=== PATIENT | male | born 1950 | race Caucasian/White ===

== ENCOUNTER 2022-12-06 09:29 | Outpatient (CLI) | payer OTHER, SELFPAY ==
[2022-12-06 13:53] LABS: Albumin* 4.4 g/dL (3.3-5.0); Chloride* 107 mmol/L (96-114); Sodium* 139 mmol/L (135-149)
[2022-12-06 13:54] LABS: Potassium* 4.2 mmol/L (3.6-5.1)
[2022-12-06 13:55] LABS: Cholesterol* 189 mg/dL (90-199)
[2022-12-06 13:56] LABS: Aspartate Amino Transferase* 30 U/L (12-35); Bilirubin Total* 0.9 mg/dL (0.1-1.5); Blood Urea Nitrogen* 16 mg/dL (7-30); Carbon Dioxide* 26 mmol/L (20-32); Creatinine* 0.8 mg/dL (0.5-1.5); Estimated Glomerular Filt Rate 95 ml/min; Glucose* 100 mg/dL (60-115); Total Protein* 7.5 g/dL (6.0-8.3); Triglycerides* 105 mg/dL (40-149)
[2022-12-06 13:57] LABS: Alanine Aminotransferase* 34 U/L (4-50); Alkaline Phosphatase* 72 U/L (40-150); HDL Cholesterol* 37 mg/dL (>=40); LDL Cholesterol Calculated 131 mg/dL (<100)
[2022-12-06 14:09] LABS: Vitamin D 25 Hydroxy* 25 ng/mL (30-80)
[2022-12-06 14:20] LABS: PSA Screen* 1.53 ng/mL (0.10-4.00)
[2022-12-06 14:40] LABS: Vitamin B12* 348 pg/mL (243-894)
[2022-12-06 15:00] LABS: Creatinine Urine 203.2 mg/dL
[2022-12-06 15:04] LABS: Microalbumin Creatinine Ratio 10 mg/g (0-30); Microalbumin Urine 3 mg/dL
== END 2022-12-06 09:30 | disposition home or self-care (01) ==
PROVIDERS: Visit Provider Family Medicine
DX: Z00.00 Encounter for general adult medical examination without abnormal findings (principal); R03.0 Elevated blood-pressure reading, without diagnosis of hypertension; R73.03 Prediabetes; Z13.1 Encounter for screening for diabetes mellitus; Z12.5 Encounter for screening for malignant neoplasm of prostate; Z13.6 Encounter for screening for cardiovascular disorders
CPT/HCPCS: 80053; 80061; 82043; 82306; 82570; 82607; 84153

== ENCOUNTER 2023-11-27 08:52 | Outpatient (CLI) | payer OTHER, SELFPAY ==
--- NOTE | 2023-11-27 09:19 | P.ANES_ITS ---
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
--- NOTE | 2023-11-27 10:17 | W.ANESCHARGE ---
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
== END 2023-11-27 08:53 | disposition home or self-care (01) ==
LOC: OP CLINIC 08:56
PROVIDERS: PCP Family Medicine; Visit Provider Surgery
DX: Z12.11 Encounter for screening for malignant neoplasm of colon (principal); K63.5 Polyp of colon; K64.8 Other hemorrhoids
CPT/HCPCS: 00811; 45385; 88305; 99100; J2704

== ENCOUNTER 2024-10-15 10:32 | Outpatient (CLI) | payer OTHER, SELFPAY | END 2024-10-15 10:33 | disposition home or self-care (01) | PROVIDERS: PCP Nurse Practitioner Family; Visit Provider Nurse Practitioner Family | DX: E78.5 Hyperlipidemia, unspecified (principal); I10 Essential (primary) hypertension; Z12.5 Encounter for screening for malignant neoplasm of prostate | CPT/HCPCS: 80053; 80061; G0103 ==